=== PATIENT | female | born 1970 | race Caucasian/White ===

== ENCOUNTER → 2020-01-31 | Outpatient (CLI) | payer BC ==
[~2020-01-31] MED LIST: Voltaren100 GM TOP
[2020-02-01 11:36] LABS: Candida species (DNA Probe) Negative (NEGATIVE); G. vaginalis (DNA Probe) Negative (NEGATIVE); T. vaginalis (DNA Probe) Negative (NEGATIVE)
[2020-02-02 03:08] LABS: CHLAMYDIA TRACHOMATIS, NAA Negative (Negative); NEISSERIA GONORRHOEAE, NAA Negative (Negative)
== END | disposition home or self-care (01) ==
LOC: LAB 19:02 → LAB SHORT 19:02
PROVIDERS: Physician Assistant
DX: N76.0 Acute vaginitis (principal)
CPT/HCPCS: 87086; 87480; 87491; 87510; 87591; 87660

== ENCOUNTER → 2020-03-05 | Outpatient (CLI) | payer BC ==
[2020-03-06 09:27] LABS: T. vaginalis (DNA Probe) Negative (NEGATIVE)
[2020-03-06 09:28] LABS: Candida species (DNA Probe) Negative (NEGATIVE); G. vaginalis (DNA Probe) Positive (NEGATIVE)
[2020-03-08 09:10] LABS: HPV 16 Negative (Negative); HPV 18 Negative (Negative); HPV OTHER HR TYPES Negative (Negative)
== END | disposition home or self-care (01) ==
LOC: LAB 19:14
PROVIDERS: Obstetrics & Gynecology
DX: Z01.419 Encounter for gynecological examination (general) (routine) without abnormal findings (principal); A59.9 Trichomoniasis, unspecified
CPT/HCPCS: 87480; 87510; 87624; 87660; G0123

== ENCOUNTER 2024-05-24 19:05 | Emergency (ER) | payer BC ==
[~2024-05-24] VITALS: Ht 157.5 cm; Wt 84.4 kg
[2024-05-24 19:49] LABS: BASOPHILS ABSOLUTE AUTO 0.05 K/mm3 (0.00-0.23); BASOPHILS PERCENT AUTO 0 % (0-2); EOSINOPHILS ABSOLUTE AUTO 0.08 K/mm3 (0.00-0.68); EOSINOPHILS PERCENT AUTO 1 % (0-6); Hemoglobin 12.9 g/dL (11.5-16.0); IMMATURE GRAN ABSOLUTE AUTO 0.06 K/mm3 (0.00-0.10); IMMATURE GRAN PERCENT AUTO 1 % (0-1); LYMPHOCYTES ABSOLUTE AUTO 3.01 K/mm3 (0.84-5.20); LYMPHOCYTES PERCENT AUTO 26 % (21-46); MONOCYTES PERCENT AUTO 13 % (4-13); Mean Corpuscular HGB Conc 35.8 g/dL (31.5-36.5); Mean Corpuscular Volume 87 fL (80-100); NEUTROPHILS PERCENT AUTO 60 % (41-73); Platelet Count 227 K/mm3 (150-400); RDW Coefficient Variation 13.4 % (11.7-14.2); RDW Standard Deviation 41.4 fL (35.1-46.3); Red Blood Cell Count 4.16 M/mm3 (3.80-5.20)
[2024-05-24] MEDS ORDERED: LORazepam 2 MG/ML 1ML Injection IV ONE ×2 (20:05→22:30)
[2024-05-24] MEDS ORDERED: NS 1,000 ML IV SCH (20:05)
[2024-05-24 20:15] LABS: Albumin, Blood 3.7 g/dL (3.4-5.0); Albumin/Globulin Ratio 1.2 (0.8-1.8); Bilirubin, Total 1.1 mg/dL (0.1-1.0); Bun/Creatinine Ratio 29.4 (12.0-20.0); Calcium, Blood 9.2 mg/dL (8.5-10.1); Creatinine, Blood 0.65 mg/dL (0.40-1.00); Globulin, Blood 3.1 g/dL (2.2-4.0); Potassium, Blood 3.5 mmol/L (3.5-5.5); Total Protein, Blood 6.8 g/dL (6.4-8.2)
[2024-05-24 20:46] LABS: Magnesium, Blood 1.9 mg/dL (1.6-2.4); Phosphorus, Blood 3.2 mg/dL (2.5-4.9)
[2024-05-24] MEDS ORDERED: CYCL10 PO (23:57)
[2024-05-25 00:09] VITALS: BP 103/64
== END 2024-05-25 00:12 | disposition home or self-care (01) ==
LOC: ER 19:05
PROVIDERS: Emergency Medicine; Student in an Organized Health Care Education/Training Program
DX: R55 Syncope and collapse (principal); R25.2 Cramp and spasm; E11.65 Type 2 diabetes mellitus with hyperglycemia; I10 Essential (primary) hypertension; Z79.1 Long term (current) use of non-steroidal anti-inflammatories (NSAID)
CPT/HCPCS: 71046; 80053; 83735; 84100; 84484; 85025; 85379; 93005; 93010; 96374; 96375; 99285-25; J2060; J7030

== ENCOUNTER 2024-08-17 07:10 | Emergency (ER) | payer BC ==
[~2024-08-17] VITALS: Ht 157.5 cm; Wt 83.9 kg
[~2024-08-17 07:10] MED LIST changes: +CYCL10 PO
[2024-08-17 07:35] VITALS: BP 151/110
[2024-08-17] MEDS ORDERED: Ketorolac Tromethamine 15mg Vial IM ONE (09:25)
[2024-08-17] MEDS ORDERED: HYDROcodone 5-APAP 325 TAB PO ONE (09:30)
[2024-08-17] MEDS ORDERED: Lidocaine 4% 1 Patch TOP ONE (09:30)
[2024-08-17] MEDS ORDERED: Methocarbamol 500 MG Tab PO ONE (09:30)
[2024-08-17] MEDS ORDERED: HYDR1TAB94 PO (10:05)
[2024-08-17] MEDS ORDERED: Robaxin750 MG PO (10:05)
== END 2024-08-17 10:30 | disposition home or self-care (01) ==
LOC: ER 07:10
DX: M75.31 Calcific tendinitis of right shoulder (principal); I10 Essential (primary) hypertension; E11.9 Type 2 diabetes mellitus without complications; Z79.899 Other long term (current) drug therapy
CPT/HCPCS: 73030; 96372; 99283-25; A9270; J1885